=== PATIENT | male | born 1980 | race Hispanic/Latino ===

== ENCOUNTER 2018-09-23 18:18 | Observation (INO) | payer OTHER ==
[2018-09-23] MEDS ORDERED: Simethicone 80 mg Chewtab PO STA (19:18)
[2018-09-23] MEDS ORDERED: Sodium Chloride 0.9% 1,000 ML IV STA (19:18)
[2018-09-23 20:40] LABS: BASO % 0.2 % (0.0-2.0); EOS % 0.2 % (0.0-4.0); HEMOGLOBIN 14.1 g/dL (12.0-18.0); LYMPH # 0.9 K/uL (1.0-4.3); LYMPH % 5.1 % (20.0-40.0); MEAN CELL VOLUME 94.4 fl (80.0-94.0); MEAN CORPUSCULAR HEMOGLOBIN 31.7 pg (27.0-31.0); MEAN CORPUSCULAR HGB CONC 33.6 g/dL (33.0-37.0); MEAN PLATELET VOLUME 7.4 fl (7.2-11.7); MONO # 1.5 K/uL (0.0-0.8); MONO % 8.5 % (0.0-10.0); NEUT # 15.2 K/uL (1.8-7.0); NRBC % 0.1 % (0.0-0.0); PLATELET COUNT 306 K/uL (130-400); RBC 4.45 Mil/uL (4.40-5.90); RED CELL DISTRIBUTION WIDTH 13.3 % (11.5-14.5); WHITE BLOOD COUNT 17.7 K/uL (4.8-10.8)
[2018-09-23 20:48] LABS: URINE BILIRUBIN NEGATIVE (NEGATIVE); URINE CLARITY CLEAR (Clear); URINE COLOR YELLOW (YELLOW); URINE GLUCOSE (UA) NEG (NEGATIVE); URINE LEUKOCYTE ESTERASE NEG Leu/uL (Negative); URINE PROTEIN 30 mg/dL (NEGATIVE); URINE UROBILINOGEN 0.2-1.0 mg/dL (0.2-1.0)
[2018-09-23 20:54] LABS: URINE BLOOD MODERATE (NEGATIVE)
[2018-09-23 21:00] LABS: ALB/GLOB RATIO 1.3 (1.0-2.1); ALBUMIN 4.7 g/dL (3.5-5.0); ALT/SGPT 39 U/L (21-72); AST/SGOT 34 U/L (17-59); BLOOD UREA NITROGEN 9 mg/dl (9-20); CALCIUM 9.9 mg/dL (8.4-10.2); GFR NON-AFRICAN AMERICAN > 60; LIPASE 1353 U/L (23-300)
--- NOTE | 2018-09-23 21:06 | ED PDOC ---
HPI: Abdomen Time Seen by Provider: 09/23/18 19:05 Chief Complaint (Nursing): Abdominal Pain Chief Complaint (Provider): Abdominal Pain History Per: Patient History/Exam Limitations: no limitations Onset/Duration Of Symptoms: Days Current Symptoms Are (Timing): Still Present Additional Complaint(s): 38 y/o male with a PMHx of Pancreatitis diagnosed one month ago secondary to alcohol use presents to the ED for evaluation of abdominal pain. Patient reports of drinking 4 glasses of wine on Wednesday, having went on an alcoholic binge on Wednesday and additionally drinking alcohol on Wednesday. Patient notes of experiencing diffuse abdominal pain over the last few days but states pain is worse on the left. Patient notes he has been unable to tolerate PO yesterday and has been eating poorly all week. Patient states he did not come to the ER because he was doing work in [employer]. Patient states he is currently not vomiting but has been having abdominal discomfort. Patient rates his discomfort as a 4/5. Of note, patient additionally states current pain is si milar to that of previous pancreatitis. Patient additionally reports of noticing that his abdomen has been getting "swollen". Otherwise, patient denies and drug use. PMD: no provider Past Medical History Reviewed: Historical Data, Nursing Documentation, Vital Signs Vital Signs: Last Vital Signs Temp 98.9 F 09/23/18 18:29 Pulse 116 H 09/23/18 18:29 Resp 20 09/23/18 18:29 BP 131/84 09/23/18 18:29 Pulse Ox 100 09/23/18 18:29 - Medical History PMH: Pancreatitis - Surgical History Surgical History: No Surg Hx - Family History Family History: States: Unknown Family Hx - Social History Current smoker - smoking cessation education provided: No Alcohol: > 2 Drinks/Day Drugs: Denies - Home Medications Home Medications: Ambulatory Orders Medication Instructions Recorded No Known Home Med 09/23/18 - Allergies Allergies/Adverse Reactions: Allergies Allergy/AdvReac Type Severity Reaction Status Date / Time No Known Allergies Allergy Verified 09/23/18 18:29 Review of Systems ROS Statement: Except As Marked, All Systems Reviewed And Found Negative Gastrointestinal: Positive for: Vomiting (but none at this time), Abdominal Pain, Other (decreased PO intake) Physical Exam - Reviewed Nursing Documentation Reviewed: Yes Vital Signs Reviewed: Yes - Physical Exam Appears: Positive for: Uncomfortable Head Exam: Positive for: ATRAUMATIC, NORMOCEPHALIC Skin: Positive for: Normal Color, Warm, Dry Eye Exam: Positive for: Normal appearance, EOMI, PERRL Neck: Positive for: Normal, Painless ROM, Supple Cardiovascular/Chest: Positive for: Regular Rate, Rhythm. Negative for: Murmur Respiratory: Positive for: Normal Breath Sounds. Negative for: Respiratory Distress Gastrointestinal/Abdominal: Positive for: Tenderness (Mildly tender in the LLQ and LUQ. (-) McBurney's Tenderness, (-) Margarita's Sign ), Distended (mild distention and fullness) Back: Positive for: Normal Inspection. Negative for: L CVA Tenderness, R CVA Tenderness, Vertebral Tenderness Extremity: Positive for: Normal ROM. Negative for: Deformity Neurological/Psych: Positive for: Awake, Alert, Oriented (x3). Negative for: Motor/Sensory Deficits - Laboratory Results Result Diagrams: 09/23/18 20:06 09/23/18 20:06 Lab Results: Urine Color Yellow (YELLOW) 09/23/18 20:06 Urine Clarity Clear (Clear) 09/23/18 20:06 Urine pH 7.0 (5.0-8.0) 09/23/18 20:06 Ur Specific [place] 1.008 (1.003-1.030) 09/23/18 20:06 Urine Protein 30 mg/dL (NEGATIVE) 09/23/18 20:06 Urine Glucose (UA) Neg mg/dL (NEGATIVE) 09/23/18 20:06 Urine Ketones Negative mg/dL (NEGATIVE) 09/23/18 20:06 Urine Blood Moderate (NEGATIVE) 09/23/18 20:06 Urine Nitrate Negative (NEGATIVE) 09/23/18 20:06 Urine Bilirubin Negative (NEGATIVE) 09/23/18 20:06 Urine Urobilinogen 0.2-1.0 mg/dL (0.2-1.0) 09/23/18 20:06 Ur Leukocyte Esterase Neg Shant/uL (Negative) 09/23/18 20:06 Urine RBC (Auto) 9 /hpf (0-3) H 09/23/18 20:06 Urine Microscopic WBC 5 /hpf (0-5) 09/23/18 20:06 - ECG O2 Sat by Pulse Oximetry: 100 (RA) Pulse Ox Interpretation: Normal Medical Decision Making Medical Decision Making: Time: 1917 A/P: 38 y/o male with previous pancreatitis presenting with abdominal pain -- Possible pancreatitis based on history -- Possible colitis vs. gas vs. diverticulitis -- CMP -- Lipase -- CBC with Differentials -- Mylicon Chew Tablet 80 mg PO -- Sodium Chloride IV 1000 mls/hr -- Urinalysis Time: 2034 Plan: -- Toradol 15 mg IVP Time: 2100 -- Labs within normal limits. On re-evaluation, patient still complaining of p ain. CT Abd/Pelvis ordered for further evaluation. -- CT Abdomen/Pelvis IV Contast ONLY -- Lactated Ringer's IV 1000 mls/hr -- admit to Hospital Routine, case discussed with Dr. Olivares who accepts ad mission --Page placed to Dr. Ortiz for consult Time: 2210 EXAM: CT Abdomen and Pelvis with IV contrast CLINICAL HISTORY: PANCREATITIS, LEUKOCYTOSIS TECHNIQUE: Axial computed tomography images of the abdomen and pelvis with intravenous contrast. 601.27 mGy-cm CONTRAST: With; [id number] COMPARISON: None provided. FINDINGS: LUNG BASES: Minimal bibasilar dependent atelectasis is noted. A trace left pleural effusion is also present. LIVER: Mild hepatomegaly. The liver measured 17.1 cm in the mid clavicular line. GALLBLADDER AND BILE DUCTS: The gallbladder appears within normal limits. No radioopaque gallstones are seen. No biliary ductal dilatation is evident. PANCREAS: Peripancreatic inflammatory stranding is seen in the distal body and particularly the tail regions compatible with acute pancreatitis. No pancreatic abscess formation is detected. SPLEEN: Unremarkable. Very minimal perisplenic fluid is seen along the medial inferior pole from the acute pancreatitis. ADRENAL GLANDS: Unremarkable. KIDNEYS, URETERS, AND BLADDER: The kidneys appear within normal limits. There is no hydronephrosis or hydroureter. No urinary calculi are seen. The urinary bladder appeared normal in size and configuration. STOMACH AND BOWEL: Unremarkable appearance of the stomach. No evidence of bowel obstruction. Mild mucosal wall thickening and fluid in the lumen are seen throughout the small intestinal tract thought compatible with diffuse enteritis. Infectious or inflammatory etiologies are thought most likely. Liquid stool is identified in the right hemicolon thought compatible with diarrhea. APPENDIX: No evidence of acute appendicitis on CT examination. PERITONEUM: Minimal free fluid noted in the dependent pelvis. No free air. LYMPH NODES: No lymphadenopathy is evident. REPRODUCTIVE: Unremarkable as visualized. VASCULATURE: No evidence of abdominal aortic aneurysm. BONES: No aggressive appearing osseous lesion. No acute osseous pathology evident. There is some vacuum disc phenomenon noted at the L5-S1 interspace compatible with disc desiccation. IMPRESSION: 1. Evidence of acute pancreatitis as described above; most pronounced in the tail region. 2. Evidence of diffuse enteritis. 3. Liquid stool in the right hemicolon are compatible with diarrhea. 4. Mild hepatomegaly. 5. Trace left pleural effusion. 6. Minimal free fluid in the dependent pelvis and medial perisplenic region. Electronically signed on Sep 23, 2018 10:11:38 PM EDT by: Tariq Vigil M.D., DARIEN Certified By [facility] [employer] [facility] Fellowship Trained MRI and CT Specialist Scribe Attestation: Documented by Gagan Lozano, acting as a scribe Bre Abbasi MD. Provider Scribe Attestation: All medical record entries made by the Scribe were at my direction and personally dictated by me. I have reviewed the chart and agree that the record accurately reflects my personal performance of the history, physical exam, medical decision making, and the department course for this patient. I have also personally directed, reviewed, and agree with the discharge instructions and disposition. Disposition - Clinical Impression Clinical Impression: Pancreatitis - Patient ED Disposition Is Patient to be Admitted: Yes Counseled Patient/Family Regarding: Studies Performed, Diagnosis - Disposition Disposition Time: 21:00 Condition: FAIR
[2018-09-23] MEDS ORDERED: Iohexol 300 100 ML IJ ONE (21:12)
[2018-09-23] MEDS ORDERED: Sodium Chloride 0.9% 50 ML IV ONE (21:13)
[2018-09-23 21:46] LABS: BANDS 2 % (0-2); LYMPHOCYTE 9 % (20-50); MONOCYTE 7 % (0-10); NEUTROPHIL 82 % (42-75); PLATELET ESTIMATE NORMAL (NORMAL); TOTAL CELLS COUNTED 100
[2018-09-23] MEDS: Lactated Ringer's 1,000 ML IV SCH (21:53)
[2018-09-23] MEDS ORDERED: Morphine 4 MG/ML VIAL IVP STA (23:44)
[2018-09-23] MEDS ORDERED: Morphine 4 MG/ML VIAL ONE (23:52)
[2018-09-24] MEDS: Sodium Chloride 0.9% 1,000 ML IV SCH ×6 (01:45→22:14)
[2018-09-24] MEDS ORDERED: Sodium Chloride 0.9% 1,000 ML IV SCH (01:45)
[2018-09-24] MEDS: Lactated Ringer's 1,000 ML IV SCH (01:56)
[2018-09-24 09:59] LABS: BASO % 0.1 % (0.0-2.0); EOS # 0.1 K/uL (0.0-0.7); EOS % 0.8 % (0.0-4.0); HEMOGLOBIN 11.8 g/dL (12.0-18.0); LYMPH # 0.9 K/uL (1.0-4.3); LYMPH % 6.9 % (20.0-40.0); MEAN CELL VOLUME 95.2 fl (80.0-94.0); MEAN CORPUSCULAR HEMOGLOBIN 31.6 pg (27.0-31.0); MEAN CORPUSCULAR HGB CONC 33.2 g/dL (33.0-37.0); MEAN PLATELET VOLUME 7.5 fl (7.2-11.7); MONO # 1.2 K/uL (0.0-0.8); NEUT # 10.7 K/uL (1.8-7.0); NEUT % 83.2 % (50.0-75.0); RBC 3.75 Mil/uL (4.40-5.90); RED CELL DISTRIBUTION WIDTH 13.4 % (11.5-14.5); WHITE BLOOD COUNT 12.8 K/uL (4.8-10.8)
[2018-09-24 10:12] LABS: ALB/GLOB RATIO 1.2 (1.0-2.1); ALBUMIN 3.6 g/dL (3.5-5.0); ALT/SGPT 30 U/L (21-72); AST/SGOT 21 U/L (17-59); BLOOD UREA NITROGEN 7 mg/dl (9-20); CALCIUM 8.6 mg/dL (8.4-10.2); GFR NON-AFRICAN AMERICAN > 60; HDL CHOLESTEROL 43 MG/DL (30-70); LIPASE 617 U/L (23-300)
--- NOTE | 2018-09-24 10:12 | CT ---
Date of service: 09/23/2018 PROCEDURE: CT Abdomen and Pelvis with contrast HISTORY: pancreatitis, leukocytosis COMPARISON: None. TECHNIQUE: Contrast dose: 95 mL Omnipaque 300 Radiation dose: Total exam DLP = 601.27 mGy-cm. This CT exam was performed using one or more of the following dose reduction techniques: Automated exposure control, adjustment of the mA and/or kV according to patient size, and/or use of iterative reconstruction technique. FINDINGS: LOWER THORAX: Bilateral lower lobe atelectasis/scarring. LIVER: Unremarkable. No gross lesion or ductal dilatation. GALLBLADDER AND BILE DUCTS: Unremarkable. PANCREAS: Extensive peripancreatic fat stranding with small amount of peripancreatic fluid, predominantly around the pancreatic tail compatible with pancreatitis. No hemorrhage or necrosis. Areas of fluid are nonenhancing and do not appear to be loculated. SPLEEN: Unremarkable. ADRENALS: Unremarkable. No mass. KIDNEYS AND URETERS: Unremarkable. No hydronephrosis. No solid mass. VASCULATURE: Unremarkable. No aortic aneurysm. No aortic atherosclerotic calcification or mural plaque present. BOWEL: Thickening of the splenic flexure and proximal descending colon adjacent to the pancreatic tail. No obstruction. No gross mural thickening. APPENDIX: Normal appendix. PERITONEUM: Small amount of fluid tracking along the left anterior renal fascia extending to the left pericolic gutter. Small amount of fluid in the right pericolic gutter extending down into the deep pelvis. No free air. LYMPH NODES: Unremarkable. No enlarged lymph nodes. BLADDER: Unremarkable. REPRODUCTIVE: Unremarkable. BONES: No acute fracture. OTHER FINDINGS: None. IMPRESSION: Acute pancreatitis primarily involving the distal body and tail. No evidence of hemorrhage, necrosis, or pseudocyst formation. Peripancreatic fluid does not appear walled-off and extends into both pericolic gutters as well as into the deep pelvis. Thickening of the splenic flexure and proximal descending colon, likely reactive to the adjacent pancreatic process.
[2018-09-24] MEDS ORDERED: Potassium Chloride 20 mEq/15 ml LIQ UD PO STA (15:57)
--- NOTE | 2018-09-24 16:00 | CP.PCM.HP ---
Past Patient History - Past Medical History & Family History Past Medical History?: Yes - Past Social History Smoking Status: Never Smoked - CARDIAC Hx Cardiac Disorders: No - PULMONARY Hx Respiratory Disorders: No - NEUROLOGICAL Hx Neurological Disorder: No - HEENT Hx HEENT Problems: No - RENAL Hx Chronic Kidney Disease: No - ENDOCRINE/METABOLIC Hx Endocrine Disorders: No - HEMATOLOGICAL/ONCOLOGICAL Hx Blood Disorders: No - INTEGUMENTARY Hx Dermatological Problems: No - MUSCULOSKELETAL/RHEUMATOLOGICAL Hx Musculoskeletal Disorders: No Hx Falls: No - GASTROINTESTINAL Hx Gastrointestinal Disorders: Yes Hx Pancreatitis: Yes - GENITOURINARY/GYNECOLOGICAL Hx Genitourinary Disorders: No - PSYCHIATRIC Hx Psychophysiologic Disorder: No Hx Substance Use: No - SURGICAL HISTORY Hx Surgeries: No - ANESTHESIA Hx Anesthesia: No Hx Anesthesia Reactions: No Meds Allergies/Adverse Reactions: Allergies Allergy/AdvReac Type Severity Reaction Status Date / Time No Known Allergies Allergy Verified 09/23/18 18:29 Results - Vital Signs Recent Vital Signs: Last Vital Signs Temp 99.6 F 09/24/18 08:59 Pulse 101 H 09/24/18 08:59 Resp 20 09/24/18 08:59 BP 120/77 09/24/18 08:59 Pulse Ox 95 09/24/18 08:59 - Labs Result Diagrams: 09/24/18 09:05 09/24/18 09:05 Labs: Laboratory Results - last 24 hr 09/23/18 09/23/18 09/23/18 20:06 20:06 20:06 WBC 17.7 H RBC 4.45 Hgb 14.1 Hct 42.0 MCV 94.4 H MCH 31.7 H MCHC 33.6 RDW 13.3 Plt Count 306 MPV 7.4 Neut % (Auto) 86.0 H Lymph % (Auto) 5.1 L [place] % (Auto) 8.5 Eos % (Auto) 0.2 Baso % (Auto) 0.2 Neut # (Auto) 15.2 H Lymph # (Auto) 0.9 L [place] # (Auto) 1.5 H Eos # (Auto) 0.0 Baso # (Auto) 0.0 Neutrophils % (Manual) 82 H Band Neutrophils % 2 Lymphocytes % (Manual) 9 L Monocytes % (Manual) 7 Platelet Estimate Normal Sodium 136 Potassium 3.9 Chloride 95 L Carbon Dioxide 31 H Anion Gap 14 BUN 9 Creatinine 0.9 Est GFR ( Amer) > 60 Est GFR (Non-Af Amer) > 60 Random Glucose 119 H Calcium 9.9 Total Bilirubin 0.9 AST 34 ALT 39 Alkaline Phosphatase 70 Total Protein 8.2 Albumin 4.7 Globulin 3.5 Albumin/Globulin Ratio 1.3 HDL Cholesterol Lipase 1353 H Urine Color Yellow Urine Clarity Clear Urine pH 7.0 Ur Specific [place] 1.008 Urine Protein 30 Urine Glucose (UA) Neg Urine Ketones Negative Urine Blood Moderate Urine Nitrate Negative Urine Bilirubin Negative Urine Urobilinogen 0.2-1.0 Ur Leukocyte Esterase Neg Urine RBC (Auto) 9 H Urine Microscopic WBC 5 Alcohol, Quantitative 09/23/18 09/24/18 09/24/18 21:50 09:05 09:05 WBC 12.8 H RBC 3.75 L Hgb 11.8 L D Hct 35.7 MCV 95.2 H MCH 31.6 H MCHC 33.2 RDW 13.4 Plt Count 246 MPV 7.5 Neut % (Auto) 83.2 H Lymph % (Auto) 6.9 L [place] % (Auto) 9.0 Eos % (Auto) 0.8 Baso % (Auto) 0.1 Neut # (Auto) 10.7 H Lymph # (Auto) 0.9 L [place] # (Auto) 1.2 H Eos # (Auto) 0.1 Baso # (Auto) 0.0 Neutrophils % (Manual) Band Neutrophils % Lymphocytes % (Manual) Monocytes % (Manual) Platelet Estimate Sodium 138 Potassium 3.5 L Chloride 103 Carbon Dioxide 26 Anion Gap 13 BUN 7 L Creatinine 0.7 L Est GFR ( Amer) > 60 Est GFR (Non-Af Amer) > 60 Random Glucose 118 H Calcium 8.6 Total Bilirubin 0.6 AST 21 ALT 30 Alkaline Phosphatase 52 Total Protein 6.6 Albumin 3.6 Globulin 3.0 Albumin/Globulin Ratio 1.2 HDL Cholesterol 43 Lipase 617 H Urine Color Urine Clarity Urine pH Ur Specific [place] Urine Protein Urine Glucose (UA) Urine Ketones Urine Blood Urine Nitrate Urine Bilirubin Urine Urobilinogen Ur Leukocyte Esterase Urine RBC (Auto) Urine Microscopic WBC Alcohol, Quantitative < 10 Assessment & Plan (1) Acute pancreatitis Status: Acute
--- NOTE | 2018-09-24 23:53 | CP.PCM.CON ---
History of Present Illness - History of Present Illness History of Present Illness: 38 yo male with a past episode of pancreatitis due to alcohol use admitted with severe abdominal pain. Patient had been using alcohol just prior to admission. Review of Systems - Constitutional Constitutional: absent: Chills - EENT Eyes: absent: Blurred Vision Nose/Mouth/Throat: absent: Epistaxis - Cardiovascular Cardiovascular: absent: Chest Pain - Respiratory Respiratory: absent: Dyspnea - Gastrointestinal Gastrointestinal: As Per HPI - Genitourinary Genitourinary: absent: Change in Urinary Stream Past Patient History - Past Medical History & Family History Past Medical History?: Yes - Past Social History Smoking Status: Never Smoked - CARDIAC Hx Cardiac Disorders: No - PULMONARY Hx Respiratory Disorders: No - NEUROLOGICAL Hx Neurological Disorder: No - HEENT Hx HEENT Problems: No - RENAL Hx Chronic Kidney Disease: No - ENDOCRINE/METABOLIC Hx Endocrine Disorders: No - HEMATOLOGICAL/ONCOLOGICAL Hx Blood Disorders: No - INTEGUMENTARY Hx Dermatological Problems: No - MUSCULOSKELETAL/RHEUMATOLOGICAL Hx Musculoskeletal Disorders: No Hx Falls: No - GASTROINTESTINAL Hx Gastrointestinal Disorders: Yes Hx Pancreatitis: Yes - GENITOURINARY/GYNECOLOGICAL Hx Genitourinary Disorders: No - PSYCHIATRIC Hx Psychophysiologic Disorder: No Hx Substance Use: No - SURGICAL HISTORY Hx Surgeries: No - ANESTHESIA Hx Anesthesia: No Hx Anesthesia Reactions: No Meds Allergies/Adverse Reactions: Allergies Allergy/AdvReac Type Severity Reaction Status Date / Time No Known Allergies Allergy Verified 09/23/18 18:29 - Medications Medications: Current Medications Acetaminophen (Tylenol 325mg Tab) 650 mg PO Q6 PRN PRN Reason: Pain, Mild (1-3) Sodium Chloride (Sodium Chloride 0.9%) 1,000 mls @ 150 mls/hr IV .Q6H40M [facility] Stop: 09/25/18 06:23 Last Admin: 09/24/18 22:14 Dose: 150 mls/hr Morphine Sulfate (Morphine) 2 mg IVP Q6 PRN PRN Reason: Pain, severe (8-10) Last Admin: 09/24/18 16:44 Dose: 2 mg Morphine Sulfate (Morphine) 1 mg IVP Q4 PRN PRN Reason: Pain, moderate (4-7) Last Admin: 09/24/18 13:15 Dose: 1 mg Physical Exam - Constitutional Appears: No Acute Distress - Head Exam Head Exam: ATRAUMATIC - Eye Exam Eye Exam: Normal appearance - ENT Exam ENT Exam: Normal Exam - Neck Exam Neck exam: Positive for: Full Rom - Respiratory Exam Respiratory Exam: NORMAL BREATHING PATTERN - Cardiovascular Exam Cardiovascular Exam: REGULAR RHYTHM - GI/Abdominal Exam GI & Abdominal Exam: Distended, Normal Bowel Sounds. absent: Tenderness - Extremities Exam Extremities exam: Positive for: normal inspection - Back Exam Back exam: NORMAL INSPECTION Results - Vital Signs Recent Vital Signs: Last Vital Signs Temp 98.8 F 09/24/18 16:45 Pulse 99 H 09/24/18 16:45 Resp 20 09/24/18 16:45 BP 157/83 H 09/24/18 16:45 Pulse Ox 95 09/24/18 16:45 - Labs Result Diagrams: 09/24/18 09:05 09/24/18 09:05 Labs: Laboratory Results - last 24 hr 09/24/18 09/24/18 09:05 09:05 WBC 12.8 H RBC 3.75 L Hgb 11.8 L D Hct 35.7 MCV 95.2 H MCH 31.6 H MCHC 33.2 RDW 13.4 Plt Count 246 MPV 7.5 Neut % (Auto) 83.2 H Lymph % (Auto) 6.9 L [place] % (Auto) 9.0 Eos % (Auto) 0.8 Baso % (Auto) 0.1 Neut # (Auto) 10.7 H Lymph # (Auto) 0.9 L [place] # (Auto) 1.2 H Eos # (Auto) 0.1 Baso # (Auto) 0.0 Sodium 138 Potassium 3.5 L Chloride 103 Carbon Dioxide 26 Anion Gap 13 BUN 7 L Creatinine 0.7 L Est GFR ( Amer) > 60 Est GFR (Non-Af Amer) > 60 Random Glucose 118 H Calcium 8.6 Total Bilirubin 0.6 AST 21 ALT 30 Alkaline Phosphatase 52 Total Protein 6.6 Albumin 3.6 Globulin 3.0 Albumin/Globulin Ratio 1.2 HDL Cholesterol 43 Lipase 617 H Assessment & Plan (1) Acute pancreatitis Assessment and Plan: Improving clinically. Lipase level coming down nicely. May advance diet in the morning. Status: Acute
[2018-09-25] MEDS: Sodium Chloride 0.9% 1,000 ML IV SCH (06:00)
[2018-09-25 08:15] VITALS: BP 124/79; PULSE 79; TEMP 98.3; O2SAT 96
[2018-09-25 08:52] LABS: BASO % 0.2 % (0.0-2.0); EOS # 0.2 K/uL (0.0-0.7); EOS % 1.7 % (0.0-4.0); HEMOGLOBIN 11.8 g/dL (12.0-18.0); LYMPH # 1.3 K/uL (1.0-4.3); LYMPH % 12.9 % (20.0-40.0); MEAN CELL VOLUME 95.6 fl (80.0-94.0); MEAN CORPUSCULAR HEMOGLOBIN 31.9 pg (27.0-31.0); MEAN CORPUSCULAR HGB CONC 33.3 g/dL (33.0-37.0); MEAN PLATELET VOLUME 7.4 fl (7.2-11.7); MONO # 1.1 K/uL (0.0-0.8); MONO % 10.7 % (0.0-10.0); NEUT # 7.3 K/uL (1.8-7.0); NEUT % 74.5 % (50.0-75.0); NRBC % 0.1 % (0.0-0.0); RBC 3.71 Mil/uL (4.40-5.90); WHITE BLOOD COUNT 9.8 K/uL (4.8-10.8)
[2018-09-25 09:40] LABS: ALB/GLOB RATIO 1.1 (1.0-2.1); ALBUMIN 3.7 g/dL (3.5-5.0); ALT/SGPT 32 U/L (21-72); AST/SGOT 31 U/L (17-59); BLOOD UREA NITROGEN 5 mg/dl (9-20); CALCIUM 8.8 mg/dL (8.4-10.2); GFR NON-AFRICAN AMERICAN > 60; LIPASE 317 U/L (23-300)
--- NOTE | 2018-09-25 10:28 | CP.PCM.PN ---
Subjective - Date & Time of Evaluation Date of Evaluation: 09/25/18 Time of Evaluation: 10:26 - Subjective Subjective: Patient feels well. Had breakfast without pain. Objective - Vital Signs/Intake and Output Vital Signs (last 24 hours): Temp Pulse Resp BP Pulse Ox 98.3 F 79 96 H 124/79 96 09/25/18 08:14 09/25/18 08:14 09/25/18 08:14 09/25/18 08:14 09/25/18 08:14 - Medications Medications: Current Medications Acetaminophen (Tylenol 325mg Tab) 650 mg PO Q6 PRN PRN Reason: Pain, Mild (1-3) Morphine Sulfate (Morphine) 2 mg IVP Q6 PRN PRN Reason: Pain, severe (8-10) Last Admin: 09/24/18 16:44 Dose: 2 mg Morphine Sulfate (Morphine) 1 mg IVP Q4 PRN PRN Reason: Pain, moderate (4-7) Last Admin: 09/24/18 13:15 Dose: 1 mg - Labs Labs: 09/25/18 08:05 09/25/18 08:05 - Head Exam Head Exam: ATRAUMATIC - Eye Exam Eye Exam: Normal appearance - ENT Exam ENT Exam: Normal Exam - Neck Exam Neck Exam: Full ROM - Respiratory Exam Respiratory Exam: Clear to Ausculation Bilateral - Cardiovascular Exam Cardiovascular Exam: REGULAR RHYTHM - GI/Abdominal Exam GI & Abdominal Exam: Soft. absent: Tenderness Assessment and Plan (1) Acute pancreatitis Assessment & Plan: Doing well. May be dischaged on low fat diet. Alcohol abstinence to prevent further episodes of pancreatitis discussed. Status: Acute
[2018-09-25 14:22] VITALS: RESP 20
--- NOTE | 2018-09-28 00:26 | CP.PCM.DIS ---
Provider - Provider Date of Admission: 09/23/18 21:00 Attending physician: Nell Olivares MD Consults: 09/23/18 22:16 Gastroenterology Consult Stat Comment: Consulting Provider: Jesu Ortiz Consulting Physician: Jesu Ortiz Reason for Consult: pancreatitis 09/24/18 02:02 Social Work Referral Routine Comment: Alcohol abuse Physician Instructions: Reason For Exam: Alcohol abuse Time Spent in preparation of Discharge (in minutes): 25 Diagnosis - Discharge Diagnosis (1) Acute alcoholic pancreatitis Status: Acute Priority: High Hospital Course - Lab Results Lab Results: Most Recent Lab Values WBC 9.8 K/uL (4.8-10.8) 09/25/18 08:05 RBC 3.71 Mil/uL (4.40-5.90) L 09/25/18 08:05 Hgb 11.8 g/dL (12.0-18.0) L 09/25/18 08:05 Hct 35.4 % (35.0-51.0) 09/25/18 08:05 MCV 95.6 fl (80.0-94.0) H 09/25/18 08:05 MCH 31.9 pg (27.0-31.0) H 09/25/18 08:05 MCHC 33.3 g/dL (33.0-37.0) 09/25/18 08:05 RDW 13.0 % (11.5-14.5) 09/25/18 08:05 Plt Count 280 K/uL (130-400) 09/25/18 08:05 MPV 7.4 fl (7.2-11.7) 09/25/18 08:05 Neut % (Auto) 74.5 % (50.0-75.0) 09/25/18 08:05 Lymph % (Auto) 12.9 % (20.0-40.0) L 09/25/18 08:05 [place] % (Auto) 10.7 % (0.0-10.0) H 09/25/18 08:05 Eos % (Auto) 1.7 % (0.0-4.0) 09/25/18 08:05 Baso % (Auto) 0.2 % (0.0-2.0) 09/25/18 08:05 Neut # (Auto) 7.3 K/uL (1.8-7.0) H 09/25/18 08:05 Lymph # (Auto) 1.3 K/uL (1.0-4.3) 09/25/18 08:05 [place] # (Auto) 1.1 K/uL (0.0-0.8) H 09/25/18 08:05 Eos # (Auto) 0.2 K/uL (0.0-0.7) 09/25/18 08:05 Baso # (Auto) 0.0 K/uL (0.0-0.2) 09/25/18 08:05 Neutrophils % (Manual) 82 % (42-75) H 09/23/18 20:06 Band Neutrophils % 2 % (0-2) 09/23/18 20:06 Lymphocytes % (Manual) 9 % (20-50) L 09/23/18 20:06 Monocytes % (Manual) 7 % (0-10) 09/23/18 20:06 Platelet Estimate Normal (NORMAL) 09/23/18 20:06 Sodium 139 mmol/l (132-148) 09/25/18 08:05 Potassium 3.7 MMOL/L (3.6-5.0) 09/25/18 08:05 Chloride 104 mmol/L (98-107) 09/25/18 08:05 Carbon Dioxide 26 mmol/L (22-30) 09/25/18 08:05 Anion Gap 13 (10-20) 09/25/18 08:05 BUN 5 mg/dl (9-20) L 09/25/18 08:05 Creatinine 0.6 mg/dl (0.8-1.5) L 09/25/18 08:05 Est GFR ( Amer) > 60 09/25/18 08:05 Est GFR (Non-Af Amer) > 60 09/25/18 08:05 Random Glucose 124 mg/dL (75-110) H 09/25/18 08:05 Calcium 8.8 mg/dL (8.4-10.2) 09/25/18 08:05 Phosphorus 2.9 mg/dl (2.5-4.5) 09/25/18 08:05 Magnesium 2.3 MG/DL (1.6-2.3) 09/25/18 08:05 Total Bilirubin 0.7 mg/dl (0.2-1.3) 09/25/18 08:05 AST 31 U/L (17-59) 09/25/18 08:05 ALT 32 U/L (21-72) 09/25/18 08:05 Alkaline Phosphatase 66 U/L (38-126) 09/25/18 08:05 Total Protein 7.0 G/DL (6.3-8.2) 09/25/18 08:05 Albumin 3.7 g/dL (3.5-5.0) 09/25/18 08:05 Globulin 3.3 gm/dL (2.2-3.9) 09/25/18 08:05 Albumin/Globulin Ratio 1.1 (1.0-2.1) 09/25/18 08:05 HDL Cholesterol 43 MG/DL (30-70) 09/24/18 09:05 Lipase 317 U/L (23-300) H 09/25/18 08:05 Urine Color Yellow (YELLOW) 09/23/18 20:06 Urine Clarity Clear (Clear) 09/23/18 20:06 Urine pH 7.0 (5.0-8.0) 09/23/18 20:06 Ur Specific [place] 1.008 (1.003-1.030) 09/23/18 20:06 Urine Protein 30 mg/dL (NEGATIVE) 09/23/18 20:06 Urine Glucose (UA) Neg mg/dL (NEGATIVE) 09/23/18 20:06 Urine Ketones Negative mg/dL (NEGATIVE) 09/23/18 20:06 Urine Blood Moderate (NEGATIVE) 09/23/18 20:06 Urine Nitrate Negative (NEGATIVE) 09/23/18 20:06 Urine Bilirubin Negative (NEGATIVE) 09/23/18 20:06 Urine Urobilinogen 0.2-1.0 mg/dL (0.2-1.0) 09/23/18 20:06 Ur Leukocyte Esterase Neg Shant/uL (Negative) 09/23/18 20:06 Urine RBC (Auto) 9 /hpf (0-3) H 09/23/18 20:06 Urine Microscopic WBC 5 /hpf (0-5) 09/23/18 20:06 Alcohol, Quantitative < 10 mg/dl (0-10) 09/23/18 21:50 Discharge Exam - Head Exam Head Exam: ATRAUMATIC Discharge Plan - Follow Up Plan Condition: FAIR Disposition: HOME/ ROUTINE Instructions: Pancreatitis (DC) Additional Instructions: Follow up with Dr. Olivares in 2 weeks Referrals: Nell Olivares MD [Staff Provider] -
== END 2018-09-25 11:45 | disposition home or self-care (01) ==
LOC: H.ER 18:18 → H.ERHOLD 21:00 → H.MEDSURG1 09-24 01:13
PROVIDERS: ADMIT Internal Medicine; ATTEND Internal Medicine
DX: K85.20 Alcohol induced acute pancreatitis without necrosis or infection (principal)
CPT/HCPCS: 36415; 74177; 80053; 80320; 81003; 83690; 83718; 83735; 84100; 85025; 96361; 96374; 96375; 96376; 99284; G0378; J1885; J2270; J7030; J7120; Q9967

== ENCOUNTER 2018-10-17 12:33 | Emergency (ER) | payer OTHER ==
[2018-10-17 12:40] VITALS: BMI 26.5
[2018-10-17] MEDS ORDERED: Tetracaine 0.5% Ophth 2 ML BOTTLE OS STA (13:18)
[2018-10-17] MEDS ORDERED: Fluorescein 1 mg Ophthalmic Strip OS STA (13:24)
--- NOTE | 2018-10-17 13:33 | ED PDOC ---
HPI: Eye Injury/Pain Time Seen by Provider: 10/17/18 12:45 Chief Complaint (Nursing): Eye Problem Chief Complaint (Provider): L eye pain History Per: Patient History/Exam Limitations: no limitations Additional Complaint(s): Pt woke up @ 3:30 AM today with pain to L eye, no trauma, no contact lens use, + tearing. Past Medical History Reviewed: Nursing Documentation, Vital Signs Vital Signs: Last Vital Signs Temp 98.9 F 10/17/18 12:40 Pulse 72 10/17/18 12:40 Resp 17 10/17/18 12:40 BP 136/88 10/17/18 12:40 Pulse Ox 97 10/17/18 12:40 Primary Care Provider: FAMILY PROVIDER,NO - Medical History PMH: Pancreatitis Denies: Chronic Kidney Disease - Family History Family History: States: Unknown Family Hx - Living Arrangements Living Arrangements: With Family - Social History Current smoker - smoking cessation education provided: No - Immunization History Hx Tetanus Toxoid Vaccination: No Hx Influenza Vaccination: No Hx Pneumococcal Vaccination: No - Home Medications Home Medications: Ambulatory Orders Medication Instructions Recorded Naproxen [Naprosyn] 500 mg PO BID PRN #15 tablet 10/17/18 Ofloxacin Ophth 0.3% [Ocuflox 2 drop OS QID 5 Days #1 bottle 10/17/18 Ophth 0.3%] - Allergies Allergies/Adverse Reactions: Allergies Allergy/AdvReac Type Severity Reaction Status Date / Time No Known Allergies Allergy Verified 10/17/18 12:39 Review of Systems Constitutional: Negative for: Fever, Chills Eyes: Positive for: Pain, Redness. Negative for: Vision Change, Conjunctivae Inflammation, Eyelid Inflammation Physical Exam - Reviewed Nursing Documentation Reviewed: Yes Vital Signs Reviewed: Yes - Physical Exam Appears: Positive for: Uncomfortable Head Exam: Positive for: ATRAUMATIC, NORMAL INSPECTION Skin: Positive for: Normal Color, Warm, Dry Eye Exam: Positive for: EOMI, PERRL, Conjunctival injection (OS), Other (+ Fluroscein uptake @ mid-9 o'clock). Negative for: Periorbital swelling, Periorbital tenderness - ECG O2 Sat by Pulse Oximetry: 97 Medical Decision Making Medical Decision Makin yo male with corneal abrasion. - Adacel - Naprosyn - Rx Lev Disposition - Clinical Impression Clinical Impression: Corneal abrasion - Patient ED Disposition Is Patient to be Admitted: No - Disposition Referrals: Cesar Wilkerson MD [Staff Provider] - Disposition: Routine/Home Disposition Time: 13:34 Condition: STABLE Prescriptions: Naproxen [Naprosyn] 500 mg PO BID PRN #15 tablet PRN Reason: Pain, Moderate (4-7) Ofloxacin Ophth 0.3% [Ocuflox Ophth 0.3%] 2 drop OS QID 5 Days #1 bottle Instructions: Corneal Abrasion
[2018-10-17] MEDS ORDERED: Naproxen 500 MG TAB PO STA (14:11)
[2018-10-17] MEDS ORDERED: Naproxen 500 MG TAB PO ONE (14:15)
[2018-10-17 14:47] VITALS: BP 124/79; PULSE 66; RESP 18; TEMP 98.6; O2SAT 100
== END 2018-10-17 14:45 | disposition home or self-care (01) ==
LOC: H.ER 12:33
DX: S05.02XA Injury of conjunctiva and corneal abrasion without foreign body, left eye, initial encounter (principal)